=== PATIENT | female | born 1955 | race Caucasian/White ===

== ENCOUNTER 2016-11-22 13:31 | Emergency (ER) | payer MEDICAID ==
[2016-11-22 13:53] VITALS: RESP 18; TEMP 97.7; BMI 35.2
--- NOTE | 2016-11-22 14:13 | ED PDOC ---
Arrival/HPI - General Chief Complaint: Lower Extremity Problem/Injury Time Seen by Provider: 11/22/16 14:12 Historian: Patient - History of Present Illness Narrative History of Present Illness (Text): 11/22/16 14:25 61 y/o female, pmh including htn, nkda, s/p rt. total knee surgery 09/2016, c/o rt. calf pain x 1 week. pt. stated that she has on and off rt. calf pain for the past 1 week, no fall or trauma, on and off, no pain now, no skin discoloration, no dizziness, no other medical or psychological complaints. Past Medical History - Provider Review Nursing Documentation Reviewed: Yes - Infectious Disease Hx of Infectious Diseases: None - Tetanus Immunization Tetanus Immunization: Unknown - Reproductive Menopause: No - Cardiac Hx Cardiac Disorders: Yes Hx Hypertension: Yes - Pulmonary Hx Respiratory Disorders: No - Neurological Hx Neurological Disorder: No - HEENT Hx HEENT Disorder: No - Renal Hx Renal Disorder: No - Endocrine/Metabolic Hx Endocrine Disorders: No - Hematological/Oncological Hx Blood Disorders: No - Integumentary Hx Dermatological Disorder: No - Musculoskeletal/Rheumatological Hx Musculoskeletal Disorders: Yes Hx Arthritis: Yes - Gastrointestinal Hx Gastrointestinal Disorders: No - Genitourinary/Gynecological Hx Genitourinary Disorders: No - Psychiatric Hx Psychophysiologic Disorder: No Hx Substance Use: No - Surgical History Hx Section: Yes (x3) Hx Musculoskeletal Surgery: Yes (knee surgery) - Anesthesia Hx Anesthesia: Yes Hx Anesthesia Reactions: No Hx Malignant Hyperthermia: No - Suicidal Assessment Feels Threatened In Home Enviroment: No Family/Social History - Physician Review Nursing Documentation Reviewed: Yes Family/Social History: Unknown Family HX Smoking Status: Never Smoked Hx Alcohol Use: No Hx Substance Use: No Hx Substance Use Treatment: No Allergies/Home Meds Allergies/Adverse Reactions: Allergies No Known Allergies Allergy (Verified 11/22/16 13:53) Home Medications: Home Meds Medication Instructions Recorded Confirmed Meloxicam [Mobic] 7.5 mg PO BID 02/02/16 11/22/16 hydrOXYzine HCl [Atarax] 25 mg PO DAILY 02/02/16 11/22/16 Aspirin [Aspirin Chewable] 81 mg PO DAILY 11/22/16 11/22/16 Losartan [Cozaar] 25 mg PO DAILY 05/24/17 05/24/17 Review of Systems - Review of Systems Constitutional: absent: Fatigue, Fevers Eyes: absent: Vision Changes ENT: absent: Hearing Changes Respiratory: absent: SOB, Cough, Sputum Cardiovascular: absent: Chest Pain Gastrointestinal: absent: Abdominal Pain, Nausea, Vomiting Musculoskeletal: Myalgias. absent: Arthralgias, Back Pain, Neck Pain, Joint Swelling Neurological: absent: Headache, Dizziness, Focal Weakness Psychiatric: absent: Anxiety, Depression, Suicidal Ideation Physical Exam Vital Signs Reviewed: Yes Vital Signs Temp Pulse Resp BP Pulse Ox 11/22/16 13:47 97.7 F 72 18 131/85 97 Temperature: Afebrile Blood Pressure: Normal Pulse: Regular Respiratory Rate: Normal Appearance: Positive for: Well-Appearing, Non-Toxic, Comfortable Pain Distress: None Mental Status: Positive for: Alert and Oriented X 3 - Systems Exam Head: Present: Atraumatic, Normocephalic Pupils: Present: PERRL Extroacular Muscles: Present: EOMI Conjunctiva: Present: Normal Mouth: Present: Moist Mucous Membranes Neck: Present: Normal Range of Motion Respiratory/Chest: Present: Clear to Auscultation, Good Air Exchange. No: Respiratory Distress, Accessory Muscle Use Cardiovascular: Present: Regular Rate and Rhythm, Normal S1, S2. No: Murmurs Abdomen: Present: Normal Bowel Sounds. No: Tenderness, Distention, Peritoneal Signs Back: Present: Normal Inspection Upper Extremity: Present: Normal Inspection. No: Cyanosis, Edema Lower Extremity: Present: Normal Inspection, Other (RLE: no tenderness or swelling, no signs of infection, FROM without limitation, sensation intact, motor 5/5, +DPPT pulses, capillary refill< 2 seconds, neurovascular intact. ). No: Edema Neurological: Present: GCS=15, CN II-XII Intact, Speech Normal Skin: Present: Warm, Dry, Normal Color. No: Rashes Psychiatric: Present: Alert, Oriented x 3, Normal Insight, Normal Concentration Medical Decision Making ED Course and Treatment: 11/22/16 14:27 -RLE venuous doppler show no DVT as per preliminary report. -Discharge home with education on continue the pain medication at home, follow up with your own pmd and orthopedic wihtin 2 days, return to the ER for any new or worsening signs or symptoms. - RAD Interpretation Radiology Orders: 11/22/16 14:12 DUPLEX LOWER EXTRM VEIN RIGHT [US] Stat - PA / [employer] / Resident Statement MD/DO has reviewed & agrees with the documentation as recorded. Disposition/Present on Arrival - Present on Arrival Any Indicators Present on Arrival: No History of DVT/PE: No History of Uncontrolled Diabetes: No Urinary Catheter: No History of Decub. Ulcer: Yes History Surgical Site Infection Following: None - Disposition Have Diagnosis and Disposition been Completed?: Yes Diagnosis: Calf pain Disposition: HOME/ ROUTINE Disposition Time: 14:27 Patient Plan: Discharge Condition: GOOD Additional Instructions: Discharge home with education on continue the pain medication at home, follow up with your own pmd and orthopedic wihtin 2 days, return to the ER for any new or worsening signs or symptoms. Referrals: Marie Ortega MD [Primary Care Provider] - Follow up with primary Forms: WORK NOTE
[2016-11-22 15:53] VITALS: BP 130/83; PULSE 70; O2SAT 98
--- NOTE | 2016-11-22 16:03 | US ---
PROCEDURE: Right lower extremity venous US HISTORY: Leg pain and swelling. Evaluate for DVT. PHYSICIAN(S): Enrique Colón M.D. TECHNIQUE: Duplex sonography and color-flow Doppler with graded compression were used to evaluate the deep venous system of the right lower extremity. FINDINGS: The visualized deep venous system of the right lower extremity is sonographically normal and compressible. Normal waveforms and augmentation are seen. There is no sonographic evidence for deep venous thrombosis in the visualized segments of the right lower extremity. IMPRESSION: 1. No sonographic evidence for deep venous thrombosis in the visualized segments of the right lower extremity.
== END 2016-11-22 15:58 | disposition home or self-care (01) ==
LOC: ED 13:31
DX: M79.661 Pain in right lower leg (principal); I10 Essential (primary) hypertension; Z98.890 Other specified postprocedural states

== ENCOUNTER 2017-01-24 21:41 | Emergency (ER) | payer MEDICAID ==
[2017-01-24 21:41] VITALS: BMI 35.2
[2017-01-24 21:48] VITALS: BP 157/81; PULSE 66; RESP 18; TEMP 97.9; O2SAT 99
[2017-01-24] MEDS ORDERED: Amoxicillin-Clav 875-125 mg Tab PO STA (22:50)
--- NOTE | 2017-01-24 22:59 | ED PDOC ---
Arrival/HPI - General Chief Complaint: ENT Problem Time Seen by Provider: 01/24/17 21:45 Historian: Patient - History of Present Illness Narrative History of Present Illness (Text): 01/24/17 23:39 61-year-old female presents today status post nasal injury. Patient/family state that the patient was doing yard work and a branch poked her in the right nostril. Family states that the patient was bleeding for about 15 minutes and then the bleeding stopped. Family then states about 15 minutes later the nose started bleeding again lasting for another 10 minutes and then stopped. At present time and the patient denies any bleeding. She denies any pain. No dizziness or weakness. Family members are concerned of the possibility of infection. Patient denies history of diabetes. Patient states that the branch went very superficially in the nose. Time/Duration: Other (9am) Symptom Onset: Sudden Symptom Course: Resolved Quality: Other (no pain) Past Medical History - Provider Review Nursing Documentation Reviewed: Yes - Travel History Have you recently traveled outside [place] w/in the past 3 mons?: No - Infectious Disease Hx of Infectious Diseases: None - Tetanus Immunization Tetanus Immunization: Unknown - Cardiac Hx Cardiac Disorders: Yes Hx Hypertension: Yes - Pulmonary Hx Respiratory Disorders: No - Neurological Hx Neurological Disorder: No - HEENT Hx HEENT Disorder: No - Renal Hx Renal Disorder: No - Endocrine/Metabolic Hx Endocrine Disorders: No - Hematological/Oncological Hx Blood Disorders: No - Integumentary Hx Dermatological Disorder: No - Musculoskeletal/Rheumatological Hx Musculoskeletal Disorders: Yes Hx Arthritis: Yes - Gastrointestinal Hx Gastrointestinal Disorders: No - Genitourinary/Gynecological Hx Genitourinary Disorders: No - Psychiatric Hx Psychophysiologic Disorder: No Hx Substance Use: No - Surgical History Hx Section: Yes (x3) Hx Musculoskeletal Surgery: Yes (knee surgery) - Anesthesia Hx Anesthesia: Yes Hx Anesthesia Reactions: No Hx Malignant Hyperthermia: No - Suicidal Assessment Feels Threatened In Home Enviroment: No Family/Social History - Physician Review Nursing Documentation Reviewed: Yes Family/Social History: Unknown Family HX Smoking Status: Never Smoked Hx Alcohol Use: No Hx Substance Use: No Hx Substance Use Treatment: No Allergies/Home Meds Allergies/Adverse Reactions: Allergies No Known Allergies Allergy (Verified 11/22/16 13:53) Review of Systems - Review of Systems Constitutional: absent: Fatigue, Fevers Eyes: absent: Vision Changes, Photophobia ENT: Epistaxis. absent: Sinus Congestion Respiratory: absent: SOB, Cough Cardiovascular: absent: Chest Pain, Palpitations Gastrointestinal: absent: Abdominal Pain, Nausea, Vomiting Musculoskeletal: absent: Arthralgias Skin: absent: Rash, Pruritis Neurological: absent: Headache, Dizziness Physical Exam Vital Signs Reviewed: Yes Vital Signs Temp Pulse Resp BP Pulse Ox 01/24/17 21:44 97.9 F 66 18 157/81 H 99 Temperature: Afebrile Blood Pressure: Hypertensive Pulse: Regular Respiratory Rate: Normal Appearance: Positive for: Well-Appearing, Non-Toxic, Comfortable Pain Distress: None Mental Status: Positive for: Alert and Oriented X 3 - Systems Exam Head: Present: Atraumatic Conjunctiva: Present: Normal Ears: Present: Normal, NORMAL TM Mouth: Present: Moist Mucous Membranes. No: Drooling, Trismus Pharnyx: Present: Normal. No: ERYTHEMA, EXUDATE Nose (External): Present: Atraumatic. No: Abrasion, Contusion, Laceration Nose (Internal): Present: Normal Inspection. No: No Active Bleeding, Engorged, Edematous, Clear Mucous, Septal Deviation, Septal Hematoma, Epistaxis Neck: Present: Normal Range of Motion Respiratory/Chest: Present: Clear to Auscultation, Good Air Exchange. No: Respiratory Distress, Accessory Muscle Use Cardiovascular: Present: Regular Rate and Rhythm, Normal S1, S2. No: Murmurs Medical Decision Making ED Course and Treatment: 01/24/17 22:59 Patient nontoxic well-appearing no distress with stable vital signs. Presents with resolved epistaxis after being poked in the nose with a branch We'll cover the patient prophylactically for infection. There is no obvious laceration or abrasion noted within the nose. Augmentin given by mouth Advised follow-up with the ENT specialist within the next 2 days. Advised to immediately return if symptoms worsen persist or if new concerning symptoms develop Patient/family verbalizes understanding of discharge instructions and need for immediate followup. all aspects of this case were discussed the attending of record. impression; nasal injury, epistaxis augmentin 1 tablet twice daily x 7 days follow up with the ENT specialist within the next 2 days follow up with the primary care physician within the next 2 days return immediately if symptoms worsen,persist or if new symptoms develop. Disposition/Present on Arrival - Present on Arrival Any Indicators Present on Arrival: No History of DVT/PE: No History of Uncontrolled Diabetes: No Urinary Catheter: No History of Decub. Ulcer: No History Surgical Site Infection Following: None - Disposition Have Diagnosis and Disposition been Completed?: Yes Diagnosis: Injury of nasal cavity, Epistaxis Disposition: HOME/ ROUTINE Disposition Time: 22:51 Patient Plan: Discharge Condition: GOOD Additional Instructions: augmentin 1 tablet twice daily x 7 days follow up with the ENT specialist within the next 2 days follow up with the primary care physician within the next 2 days return immediately if symptoms worsen,persist or if new symptoms develop. Prescriptions: Amoxicillin/Clavulanate [Augmentin 875 MG-125 MG] 1 tab PO BID #14 tab Referrals: Marie Ortega MD [Primary Care Provider] - Follow up with primary Yariel Dumas DO [Staff Provider] - Follow up with primary Forms: [employer] (Welsh)
== END 2017-01-24 23:07 | disposition home or self-care (01) ==
LOC: ED 21:41
DX: R04.0 Epistaxis (principal); S09.92XA Unspecified injury of nose, initial encounter; W22.8XXA Striking against or struck by other objects, initial encounter; Y92.096 Garden or yard of other non-institutional residence as the place of occurrence of the external cause; I10 Essential (primary) hypertension